=== PATIENT | female | born 1960 | race Caucasian/White ===

== ENCOUNTER 2018-03-04 22:46 | Emergency (ER) | payer OTHER ==
[~2018-03-04] VITALS: Ht 162.6 cm; Wt 95.0 kg
[2018-03-04 22:48] VITALS: TEMP 36.6; Ht 162.6 cm; Wt 95.0 kg
[2018-03-04] MEDS ORDERED: [UNRECOGNIZED DRUG - OTHER] PO (23:41)
[2018-03-05] MEDS ORDERED: OXYCODONE IR HOME PACK PO STA (00:48)
[2018-03-05] MEDS ORDERED: OXYC-90 PO (00:52)
--- NOTE | 2018-03-05 00:54 | EMERGENCY ROOM VISIT NOTE ---
History First contact with patient: 22:54 Chief Complaint: ANKLE PAIN Stated Complaint: BROKEN ANKLE History of Present Illness The patient is a 58 year old female who presents to the Emergency Room via private vehicle accompanied by female child with complaints of "broken ankle". The patient states that earlier today she was ambulating and slipped, fell in the left leg bent underneath her. This happened around 8:30 PM. She points to the left lateral malleolus as a location of pain which she rates as an 8/10. She notes she had ibuprofen before coming here today. She denies any numbness or tingling. She denies other injury/other areas of pain. Review of Systems A complete 6-point Review of Systems was discussed with the patient, with pertinent positives and negatives listed in the History of Present Illness. All remaining Review of Systems questions can be considered negative unless otherwise specified. Past Medical/Surgical History No pertinent. Family History No pertinent. Social History Smoking Status: Never Smoker Patient lives locally. Current/Historical Medications Scheduled PRN Oxycodone Ir (Roxicodone Ir), 1 TAB PO Q4H PRN for Pain [med for acid reflux], 1 CAP PO DAILY PRN for acid reflux Physical Exam Vital Signs Date Time Temp Pulse Resp B/P (MAP) Pulse Ox O2 Delivery O2 Flow Rate FiO2 03/05/18 01:07 81 20 135/90 100 03/04/18 22:48 36.6 73 20 135/89 99 Room Air Physical Exam VITAL SIGNS - Vital signs and nursing notes were reviewed. Stable. Afebrile. GENERAL -58-year-old female appearing her stated age who is in no acute distress. Communicates well with provider and answers questions appropriately. SKIN - Without rashes. Integument is intact overlying the left lower extremity. No bony deformity noted. HEAD - NC/AT. EXTREMITIES - No clubbing or peripheral cyanosis. No pretibial edema present. Left knee unremarkable. Tenderness is minimally elicited in the left proximal calf region overlying the fibular head. There is also some tenderness to squeezing the calf working distally down the patient's leg. There is pinpoint tenderness to which the patient notes is the worst area of pain over the left lateral malleolus region. The foot is nontender. She is neurovascularly intact distally. Excellent pulses.+5/5 strength noted in UE/LE bilaterally. NEUROLOGIC - Cranial nerves II through XII grossly intact. Sensory intact to light touch throughout. PSYCH - A&O, and cooperates fully with examiner. Pt is very pleasant and interacts well with examiner. Medical Decision & Procedures ER Provider Diagnostic Interpretation: Left tib/fib: There is a proximal fibular fracture. Slightly displaced. Left ankle: There is questionable syndesmotic widening between the distal tip/ fib region. No definite fracture noted. Medications Administered Medications (Trade) Dose Ordered Sig/Grant Route Start Time Stop Time Status Last Admin Dose Admin Oxycodone HCl (Roxicodone Immediate Rel 5MG Home Pack) 1 homepack UD STAT PO 03/05/18 00:48 03/05/18 00:49 DC 03/05/18 00:58 1 HOMEPACK Medical Decision Patient was seen and evaluated as above in room C7. Review was performed of nursing notes and vital signs. After obtaining a thorough history and physical examination the above work up was performed. She presents to us today status post fall with left ankle pain. I elected to begin with tib/fib given the proximal tenderness in the fibula. This reveals a proximal fibular fracture. I then obtain dedicated ankle views. No definite fracture noted however I question if there is a Maisonneuve type fracture. There is questionable syndesmotic injury. For this region I did discuss benefit versus risk of different splinting methods with the patient and the attending physician. I reviewed the images with the attending physician. At this time we will provide the patient an Ortho-Glass posterior long leg to splint the area well with stirrup. I believe this is better than a gel ankle splint with the immobilizer. She is to follow with orthopedics or return with worsening. She is to call the Tuesday morning. She was given pain medication in the event that [id number]-[id number] meds do not calm the pain. She is to not drive with these. Discussed risk versus benefit. No red flags in the [employer] drug monitoring system. She was educated upon risk of compartment syndrome at which this time she does not have. The calf is soft, and squeezing the calf elicits tenderness which I believe is consistent with that of likely a syndesmotic injury. The patient was educated upon management, educated upon todays findings /results, educated upon symptoms in which to return, had questions answered prior to discharge, and was discharged home in good condition. Case was discussed with the attending physician. In the evaluation and treatment of this patient, the following differential diagnoses were considered: Ankle Fracture, Ankle Sprain, Distal Fibula Fracture , Distal Tibia Fracture, Foot Fracture, Maisonneuve Fracture. Impression Primary Impression: Left ankle pain Additional Impression: Fracture of proximal end of fibula Departure Information Dispostion Home / Self-Care Condition GOOD Prescriptions Oxycodone Ir (Roxicodone Ir) 5 Mg Tab 1 TAB PO Q4H Y for Pain, #15 TAB For Initial Treatment Prov: Harvinder Lma PA-C 03/05/18 Referrals No Doctor, Assigned (PCP) Naresh Caceres MD Patient Instructions ED Compartment Syndrome At Risk For, [facility] Additional Instructions You have been treated in the Emergency Department for a left Ankle pain. You have been prescribed oxy ir to be used for pain control. This is a narcotic medication. You cannot drive or consume alcohol while on this medicine. This medicine should only be used for pain that cannot be controlled with over-the- counter pain medicines. For pain control, you can use the following utqi-myv-[id number] medicines (if >12 yo): - Regular strength (325mg/tab) Tylenol (acetaminophen) 2 tabs every 4-6 hours as needed. Do not exceed 12 tablets in a 24 hour period. Avoid taking more than 3 grams (3000 mg) of Tylenol per day. This includes any other sources of acetaminophen you may take on a regular basis. - Regular strength (200 mg/tab) Advil (ibuprofen) 1-2 tabs every 4-6 hours as needed. Do not exceed a dose of 3200 mg per day. If this is a recent injury (<24 hrs), ice can be applied to the area of pain for the first 3 days to help decrease pain and inflammation. You have been provided the number for an Orthopaedic Surgeon. You should call this number as soon as possible to establish a follow-up visit from today's Emergency Department visit. Keep the ankle brace/splint in place until cleared by Orthopedics. Use the crutches you have been provided to keep ALL weight off of the ankle until weight bearing is tolerable. Return to the Emergency Department if your current symptoms worsen despite treatment course outlined above, or if you develop any of the following symptoms : intractable pain despite aforementioned treatment course or new onset of numbness or tingling of the foot. Problem Qualifiers
[2018-03-05 01:07] VITALS: BP 135/90; PULSE 81; O2SAT 100
--- NOTE | 2018-03-05 08:15 | DIAGNOSTIC IMAGING REPORT ---
L ANKLE MIN 3 VIEWS ROUTINE CLINICAL HISTORY: Left ankle pain. Proximal fibular fracture. COMPARISON: None FINDINGS: Lateral ankle soft tissue swelling is noted. Talar dome is intact. A 3 mm ossicle along the medial malleolus is age-indeterminate but likely old. There is subtle lucency within the lateral distal left tibia shown on oblique projection. A suspected os trigonum is noted. No definite acute fracture is identified. IMPRESSION: 1. No definite acute fracture. 3 mm ossicle along the medial malleolus suggests age indeterminate avulsion injury. Oblique proximal fibular fracture raises the possibility of an Maisonneuve fracture. 2. Lucency within the lateral distal left fibula which is likely artifactual however a nondisplaced fracture could appear similar. 3. Moderate lateral ankle soft tissue swelling. Electronically signed by: Yusuf Taylor M.D. 03/05/2018 8:14 AM Dictated Date/Time: 03/05/2018 8:08 AM
--- NOTE | 2018-03-05 08:17 | DIAGNOSTIC IMAGING REPORT ---
L TIBIA/FIBULA 2 VIEWS ROUTINE CLINICAL HISTORY: Fall. Lateral left ankle pain. COMPARISON: None FINDINGS: Note is made of an acute oblique mildly displaced fracture of the proximal shaft of the left fibula. A 3 mm ossicle along the medial malleolus is noted. There is moderate lateral ankle soft tissue swelling. IMPRESSION: 1. Acute oblique mildly displaced fracture of the proximal shaft of the left fibula which may reflect a Maisonneuve fracture. 2. Moderate lateral ankle soft tissue swelling. 3. 3 mm age-indeterminate avulsion fracture of the medial malleolus. Electronically signed by: Yusuf Taylor M.D. 03/05/2018 8:16 AM Dictated Date/Time: 03/05/2018 8:14 AM
== END 2018-03-05 01:08 | disposition home or self-care (01) ==
LOC: C.EDB 22:47 → C.EDC 03-05 01:08
DX: S82.832A Other fracture of upper and lower end of left fibula, initial encounter for closed fracture (principal); W01.0XXA Fall on same level from slipping, tripping and stumbling without subsequent striking against object, initial encounter